=== PATIENT | male | born 1950 | race Caucasian/White ===

== ENCOUNTER → 2017-04-11 | Outpatient (CLI) | payer OTHER | LOC: CIMAGING 08:28 | PROVIDERS: ATTEND Family Medicine | DX: Z00.00 Encounter for general adult medical examination without abnormal findings (principal); I10 Essential (primary) hypertension; E11.9 Type 2 diabetes mellitus without complications; L30.9 Dermatitis, unspecified; M41.84 Other forms of scoliosis, thoracic region | CPT/HCPCS: 71046-PO ==

== ENCOUNTER → 2017-05-08 | Outpatient (CLI) | payer OTHER ==
[~2017-05-08] MED LIST: LIDOCAINE 1% 300 MG/30 ML SDV ONE
== END ==
LOC: FIMAGING 08:51
PROVIDERS: ATTEND Internal Medicine Gastroenterology
PROC: 0W9G3ZX Drainage of Peritoneal Cavity, Percutaneous Approach, Diagnostic (ICD-10-PCS; principal; 2017-05-08)
DX: K74.60 Unspecified cirrhosis of liver (principal); R18.8 Other ascites

== ENCOUNTER 2017-07-19 09:10 | Outpatient (CLI) | payer OTHER ==
[2017-07-19] MEDS ORDERED: LIDOCAINE 1% 300 MG/30 ML SDV ONE (09:38)
[2017-07-19] MEDS ORDERED: MIDAZOLAM 2 MG/2 ML VIAL IVP PRN (10:26)
[2017-07-19] MEDS ORDERED: FLUMAZENIL 0.5 MG/5 ML MDV IVP PRN (10:26)
[2017-07-19] MEDS ORDERED: fentaNYL 100 MCG/2 ML INJ IVP PRN (10:26)
[2017-07-19] MEDS ORDERED: NALOXONE HCL 0.4 MG/ML INJ IVP PRN (10:26)
[2017-07-19 10:27] LABS: INR 1.22 (0.83-1.16); PROTIME(PATIENT) 15.6 SEC (12.0-15.0)
[2017-07-19] MEDS ORDERED: NS 1,000 ML IV SCH (10:30)
[2017-07-19] MEDS ORDERED: MIDAZOLAM 2 MG/2 ML VIAL ONE (10:32)
[2017-07-19] MEDS ORDERED: fentaNYL 100 MCG/2 ML INJ ONE (10:32)
--- NOTE | 2017-07-19 11:08 | PDGENHP ---
History & Physical Chief Complaint: Cirrhosis. Liver lesions suspicious for HCC. History of Present Illness: Cirrhosis. Liver lesions suspicious for HCC. Relevant Physical Exam: Clear lungs Cardiorespiratory Assessment: RRR
--- NOTE | 2017-07-19 11:08 | PDPROPOC ---
Sedation Plan of Care Sedation Plan of Care: vital signs stable, mental status noted, patient educated of risks, benefits, alternatives, patient can tolerate sedation ASA Classification: ASA 2 Planned drugs: fentanyl, midazolam Mallampati Score: Class 3 Mallampati Reference Image: Patient passed 3-3-2 rule?: Yes
[2017-07-19] MEDS ORDERED: ONDANSETRON 4 MG/2 ML VIAL IVP PRN (11:59)
--- NOTE | 2017-07-19 11:59 | PDRADPN ---
Radiology Procedure Note Date of Procedure: 07/19/17 Radiologist: [employer] Operator(s): David Rut[employer] tech Anesthesia: IV Sedation (Versed & Fentanyl) Pre-op Diagnosis: Cirrhosis. Liver lesion suspicious for HCC Post-op Diagnosis: same Indication: Cirrhosis. Liver lesion suspicious for HCC Procedure: Ultrasound guided biopsy lesion in left lobe of liver Finding(s): No bleeding. Inf/Abcess present in the surg proc area at time of surgery?: No Depth: Organ Space (Liver) EBL: Minimal Complications: No immediate complication Drains: Other (None)
[2017-07-19] MEDS ORDERED: OXYCODONE/APAP 5/325 TAB PO PRN (12:03)
[2017-07-19 15:02] VITALS: BP 106/64
== END 2017-07-19 15:10 | disposition home or self-care (01) ==
LOC: FIMAGING 09:10
PROVIDERS: ATTEND Internal Medicine Gastroenterology
PROC: 0FB03ZX Excision of Liver, Percutaneous Approach, Diagnostic (ICD-10-PCS; principal; 2017-07-19 12:12)
DX: C22.0 Liver cell carcinoma (principal)
CPT/HCPCS: 47000; 76942; 88307; 88313; 88360; 99152; 99153; J2250; J3010

== ENCOUNTER → 2017-10-11 | Day surgery (SDC) | payer OTHER ==
[~2017-10-11] MED LIST changes: +ALTEPLASE 2 MG VIAL IVP PRN; +DOXORUBICIN MISC ONE; +FLUMAZENIL 0.5 MG/5 ML MDV IVP PRN; +GLUCAGON HCL 1 MG VIAL IVP PRN; +HEPARIN 10,000 UNIT/10 ML MDV (1,000 UNIT/ML) IVP PRN; +IOPAMIDOL (ISOVUE-300) 100 ML BTL ONE; +IOPAMIDOL (ISOVUE-370) 150 ML BTL IV ONE; +KETOROLAC 30 MG/1 ML SDV IVP ONE; +KETOROLAC 30 MG/1 ML SDV ONE; -LIDOCAINE 1% 300 MG/30 ML SDV ONE; +MICRON MICROSPH MISC ONE; +MIDAZOLAM 2 MG/2 ML VIAL IVP PRN; +NALOXONE HCL 0.4 MG/ML INJ IVP PRN; +NS 1,000 ML IV SCH; +ONDANSETRON 4 MG/2 ML VIAL IVP PRN; +ONDANSETRON 4 MG/2 ML VIAL ONE; +OXYCODONE/APAP 5/325 TAB PO PRN; +PROTAMINE SULFATE 50 MG/5 ML VIAL IVP PRN; +fentaNYL 100 MCG/2 ML INJ IVP PRN; +methylPREDNISolone SOD SUCC 125 MG/2 ML VIAL IVP ONE; +methylPREDNISolone SOD SUCC 125 MG/2 ML VIAL ONE
[2017-10-11 08:10] LABS: PLATELET COUNT 163 10^3/uL (150-400)
[2017-10-11 08:26] LABS: INR 1.16 (0.83-1.16)
[2017-10-11 10:34] VITALS: BP 103/67
--- NOTE | 2017-10-11 11:01 | PDPROPOC ---
Sedation Plan of Care Sedation Plan of Care: vital signs stable, mental status noted, patient educated of risks, benefits, alternatives, patient can tolerate sedation ASA Classification: ASA 2 Planned drugs: fentanyl, midazolam Mallampati Score: Class 2 Mallampati Reference Image: Patient passed 3-3-2 rule?: Yes
--- NOTE | 2017-10-11 11:01 | PDRADPRE ---
Radiology History & Physical Indication for procedure: cancer Home medications: Allopurinol 300 MG (RX) 300 mg PO DAILY 07/18/17 [Last Taken 10/10/17] Furosemide 20 mg PO DAILY 07/18/17 [Last Taken 10/10/17] Lisinopril 5 mg PO DAILY 07/18/17 [Last Taken 10/10/17] Metformin HCl 500 mg PO BID 07/18/17 [Last Taken 10/10/17] Spironolactone 100 mg PO DAILY 07/18/17 [Last Taken 10/10/17] Aspirin 81mg (*) 81 mg PO DAILY 10/09/17 [Last Taken 10/10/17] Multivitamins 1 tab PO DAILY 10/09/17 [Last Taken 10/10/17] Vitamin C 500 mg (*) 500 mg PO DAILY 10/09/17 [Last Taken 10/10/17] Allergies/Adverse Reactions: codeine Allergy (Verified 07/18/17 09:48) meperidine [From Demerol] Allergy (Verified 07/18/17 09:45) Mental status: A&Ox3 Heart exam: regular rate and rhythm Lungs exam: clear to auscultation Mallampati Score: Class 2
--- NOTE | 2017-10-11 11:02 | PDRADPN ---
Radiology Procedure Note Date of Procedure: 10/11/17 Radiologist: Juan Macr Anesthesia: IV Sedation Pre-op Diagnosis: HCC Post-op Diagnosis: HCC Indication: HCC Procedure: NEISHA-TACE Finding(s): Seg 8 lesion treated 100 mg Doxorubicin. Inf/Abcess present in the surg proc area at time of surgery?: No
== END | disposition home or self-care (01) ==
LOC: FIMAGING 07:08
PROVIDERS: ATTEND Radiology Vascular & Interventional Radiology
PROC: 04L33DZ Occlusion of Hepatic Artery with Intraluminal Device, Percutaneous Approach (ICD-10-PCS; principal; 2017-10-11)
PROC: B4121ZZ Fluoroscopy of Hepatic Artery using Low Osmolar Contrast (ICD-10-PCS; principal; 2017-10-11)
PROC: B4141ZZ Fluoroscopy of Superior Mesenteric Artery using Low Osmolar Contrast (ICD-10-PCS; principal; 2017-10-11)
PROC: B44LZZZ Ultrasonography of Femoral Artery (ICD-10-PCS; principal; 2017-10-11)
DX: C22.0 Liver cell carcinoma (principal)
CPT/HCPCS: 36247; 37243; 75726; 99152; 99153; C1769; C1887; C1894; C1760; J1200; J1644; J1885; J2250; J2310; J2405; J2930; J3010; J9000; Q9967